=== PATIENT | female | born 1950 | race Caucasian/White ===

== ENCOUNTER 2019-11-30 11:49 | Outpatient (CLI) | payer MEDICARE, SELFPAY ==
--- NOTE | 2019-11-30 11:57 | MM_ITS ---
WS: [id number] BILATERAL DIGITAL SCREENING MAMMOGRAPHY WITH CAD CLINICAL INFORMATION: SCREENING HISTORY: Screening mammogram. No current complaints. COMPARISON: TECHNIQUE: Bilateral CC and MLO views. FINDINGS: The breasts are composed of heterogeneous fibroglandular density tissue, which can limit the detectio n of small underlying mass lesions. Dystrophic calcification left breast. No suspicious mass, asymmet ry, calcifications, or architectural distortion. No evidence of malignancy. MM/[place] [id number] IMPRESSION: BI-RADS: 2-Benign FOLLOW UP: 1 Year Follow-up Recommend return to annual screening mammography.
== END 2019-11-30 11:50 | disposition home or self-care (01) ==
LOC: RADSHAW 11:55
PROVIDERS: Family Provider Family Medicine; PCP Nurse Practitioner Family; Visit Provider Nurse Practitioner Family
DX: Z12.31 Encounter for screening mammogram for malignant neoplasm of breast (principal)
CPT/HCPCS: 77067

== ENCOUNTER 2020-01-24 15:27 | Outpatient (CLI) | payer MEDICARE, SELFPAY ==
--- NOTE | 2020-01-24 15:40 | XR_ITS ---
WS: [id number] XR KUB [id number] REASON FOR EXAM: GENERALIZED ABDOMINAL PAIN FINDINGS: There appeared to be a localized ileus in the left upper abdomen. The remaining the abdomen was normal with gas and fecal stasis seen. There was no definite stones seen. XR/XR KUB [id number] IMPRESSION: Localized ileus in the left upper abdomen.
== END 2020-01-24 15:28 | disposition home or self-care (01) ==
LOC: RADWPI 15:31
PROVIDERS: Family Provider Family Medicine; PCP Nurse Practitioner Family; Visit Provider Nurse Practitioner Family
DX: K56.7 Ileus, unspecified (principal); R10.84 Generalized abdominal pain
CPT/HCPCS: 74018

== ENCOUNTER 2020-02-11 07:53 | Outpatient (CLI) | payer MEDICARE, SELFPAY ==
--- NOTE | 2020-02-11 | CT_ITS ---
WS: [id number] CT ABDOMEN PELVIS TECHNIQUE: Contrast-enhanced CT of the abdomen and pelvis with coronal and sagittal reformatted image s. CLINICAL INFORMATION: ILEUS COMPARISON: None. DLP: 1097.[address] scans at [facility] use at least one of these dose optimization techniques: automat ed exposure control; mA and/or kV adjustment per patient size (includes targeted exams where dose is matched to clinical indication); or iterative reconstruction. FINDINGS: Mild intrahepatic biliary ductal dilatation. Portal vein and splenic vein are patent. Prior cholecyst ectomy. Pancreas is normal in appearance. Splenic granulomas. Lung bases are well aerated. Normal ramana al parenchymal enhancement. No hydronephrosis. Normal caliber abdominal aorta. Mild aortic calcification. Normal sigmoid colon. Tiny midline fat-con taining epigastric hernia. Incidental fat-containing umbilical hernia. No periaortic or retroperitone al lymphadenopathy. No inguinal lymphadenopathy. Urine distended bladder. Grade 1 anterolisthesis L4 on L5. Prior hysterectomy. CT/CT abdomen pelvis w con* [id number] IMPRESSION: 1. Prior cholecystectomy with mild intrahepatic biliary ductal dilatation. 2. Normal renal parenchymal enhancement. No hydronephrosis. 3. No evidence of small or large bowel obstruction. No free fluid in the pelvi s. 4. Urine distended bladder. 5. Grade 1 anterolisthesis L4 on L5. 6. Tiny epigastric fat-containing hernia and tiny fat-containing umbilical her tom.
[2020-02-11] MEDS: iohexol 300 mg/mL 100 mL Btl IV (10:02)
[2020-02-11] MEDS: iohexol 300 mg/mL 50 mL Btl PO (11:19)
== END 2020-02-11 07:54 | disposition home or self-care (01) ==
LOC: RADWPI 07:59
PROVIDERS: Family Provider Family Medicine; PCP Nurse Practitioner Family; Visit Provider Nurse Practitioner Family
DX: K56.7 Ileus, unspecified (principal); N32.89 Other specified disorders of bladder; K42.9 Umbilical hernia without obstruction or gangrene
CPT/HCPCS: 74177; Q9967

== ENCOUNTER 2020-11-08 07:37 | Outpatient (CLI) | payer MEDICARE, SELFPAY ==
--- NOTE | 2020-11-08 07:45 | USCV_ITS ---
Shaheed Power Age: 70 Gender: F : 1950 Exam Date: 11/08/2020 08:01 Ordering Phys: Kenia Austin NP Technologist: Una Saxena Exam Location: [facility] [place] Indication: ABNORMAL EKG BP: 142 / 80 HR: 67 Rhythm: Sinus Technical Quality: Adequate MEASUREMENTS (Male / Female) Normal Values 2D ECHO LV Diastolic Diameter PLAX 3.5 cm 4.2 - 5.9 / 3.9 - 5.3 cm LV Systolic Diameter PLAX 2.4 cm LV Chamber Size 3.0 cm IVS Diastolic Thickness 1.5 cm 0.6 - 1.0 / 0.6 - 0.9 cm IVS Systolic Thickness 1.6 cm LVPW Diastolic Thickness 1.4 cm 0.6 - 1.0 / 0.6 - 0.9 cm LVPW Systolic Thickness 1.7 cm RV Chamber Size 2.8 cm LVOT Diameter 2.0 cm LV Ejection Fraction 2D Teich 60.3 % LV Ejection Fraction MOD 2C 54.4 % LV Ejection Fraction 2C AL 58.7 % LA Diameter 3.6 cm LA Width 2.7 cm LA Height 4.1 cm RA Width 2.1 cm RA Height 3.4 cm Aorta at Sinotubular Diameter 2.5 cm M-MODE LV Diastolic Diameter MM 4.2 cm 4.2 - 5.9 / 3.9 - 5.3 cm LV Systolic Diameter MM 2.1 cm LV Ejection Fraction MM Teich 81.8 % IVS Diastolic Thickness MM 0.9 cm 0.6 - 1.0 / 0.6 - 0.9 cm IVS Systolic Thickness MM 1.3 cm LVPW Diastolic Thickness MM 0.9 cm 0.6 - 1.0 / 0.6 - 0.9 cm LVPW Systolic Thickness MM 1.4 cm Aortic Annulus Diameter 2.9 cm LA Ao Ratio MM 1.3 MV E Point Septal Separation 0.5 cm DOPPLER AV Peak Velocity 135.0 cm/s LVOT Peak Velocity 100.0 cm/s AV Area Cont Eq vti 2.2 cm squared AV Area Cont Eq pk 2.4 cm squared MV Area PHT 3.3 cm squared Mitral E to A Ratio 0.8 MV E' Velocity 38.5 cm/s Mitral E to MV E' Ratio 8.8 Mitral E to LV E' Lateral Ratio 10.7 Mitral E to LV E' Septal Ratio 7.6 TR Peak Velocity 218.5 cm/s TR Peak Gradient 19.1 mmHg TV Peak E Velocity 56.0 cm/s Right Atrial Pressure 3.0 mmHg Pulmonary Artery Systolic Pressu 22.1 mmHg PV Peak Velocity 62.0 cm/s RV Acceleration Time 0.1 s RV Ejection Time 0.4 s RV AcT/ET 0.4 FINDINGS Left Ventricle Normal left ventricular cavity size and mildly increased left ventricle wall thickness. Mild concentric left ventricular hypertrophy. Normal left ventricular systolic function. Left ventricular ejection fraction is estimated at 65 %. No regional wall motion abnormalities. Grade I diastolic dysfunction (abnormal relaxation filling pattern), normal to mildly elevated filling pressures. Right Ventricle Normal right ventricular size and systolic function. Right ventricular systolic pressure 22.1 mmHg. Right Atrium Normal right atrial size. Left Atrium Mildly increased left atrial size. Mitral Valve Thickened mitral valve. Trace mitral valve regurgitation. Aortic Valve Thickened probably tricuspid sclerotic aortic valve. No aortic valve stenosis. No aortic valve regurgitation. Tricuspid Valve Structurally normal tricuspid valve. No tricuspid valve stenosis. Mild tricuspid valve regurgitation. Pulmonic Valve Pulmonic valve not well visualized. Trace pulmonary valve regurgitation. Pericardium No pericardial effusion. Normal-sized inferior vena cava. Aorta Normal-sized aortic root CONCLUSIONS 1. Normal left ventricular cavity size and mildly increased left ventricle wall thickness. Mild concentric leftventricular hypertrophy. Normal left ventricular systolic function. Left ventricular ejection fraction is estimated at 65 %. No regional wall motion abnormalities. Grade I diastolic dysfunction (abnormal relaxation filling pattern), normal to mildly elevated filling pressures. 2. Normal right ventricular size and systolic function. 3. No significant valvular abnormality. 4. Normal pulmonary artery pressure. 5. When compared to previous echocardiogram dated 02/28/2014, there has been no significant change. Meche Robin MD (Electronically Signed) Final Date: 17 November 2020 17:39 S
== END 2020-11-08 07:38 | disposition home or self-care (01) ==
PROVIDERS: PCP Nurse Practitioner Family; Visit Provider Nurse Practitioner Family
DX: R94.31 Abnormal electrocardiogram [ECG] [EKG] (principal)
CPT/HCPCS: 93306

== ENCOUNTER 2020-11-28 08:09 | Outpatient (CLI) | payer MEDICARE, SELFPAY ==
[2020-11-28 08:17] VITALS: BMI 25.8
--- NOTE | 2020-11-28 08:23 | ECG_ITS ---
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 Interpretive Statements NAME OF STUDY: EXERCISE SESTAMIBI STRESS TEST INDICATION: Chest Pain Baseline blood pressure of 203/79 mm Hg, heart rate 68 beats per minute and oxygen saturation 95%. EKG showed normal sinus rhythm, normal axis with nonspecific ST depression. The patient exercised for 8 minutes on a standard Dilip protocol. Patient attained a maximum heart rate of 139 beats per minute(93% of the maximum predicted heart rate) with a blood pressure at the peak exercise of 224/90 mm Hg and oxygen saturation 97%. The EKG at the peak exercise revealed sinus tachycardia with 1 and 1/2 to 2 mm horizontal to upsloping ST depression in inferolateral leads. Patient did not have any chest pain or any significant arrhythmis with the exercise During the recovery phase, there were no new changes. Blood pressure at the end of the recovery phase was 128/85 mm Hg with a heart rate of 82 beats per minute oxygen saturation 98%. CONCLUSION: 1. Positive EKG response to treadmill exercise. 2. No exercise-induced chest pain or cardiac arrhythmia 3. Good exercise tolerance, attained a maximum of 10.2 METs. Maximum VO2 of 35.7 mL/kg/min. 4. Baseline hypertension with hypertensive response to exercise. 5. Perfusion scan will be documented separately. Electronically Signed On 11-29-2020 13:00:08 BALLPOINT PENS ASSEMBLER by Meche Robin M.D. [id number]
--- NOTE | 2020-11-28 08:23 | NMCV_ITS ---
NM ramy perf SPECT r/s* [id number] Shaheed Power Age: 70 Gender: F : 1950 Exam Date: 11/28/2020 09:14 Ordering Phys: Meche Robin MD ([email or web address]) Technologist: SMITHA Griffin Exam Location: [facility] Indications: Chest pain STRESS TEST Please see separate stress test report in [facility] for full findings IMAGE PROTOCOL Rest/Stress 1 Exercise Day Radiopharmaceutical Dose (mCi) Administration Site Administered by Rest: Tc-99m 10.9 IV SMITHA Griffin Sestamibi Stress:Tc-99m 32.2 IV SMITHA Griffin Sestam[place]ayton Rest: 28-Nov-2020 60 Discovery 630 Stress: 28-Nov-2020 60 Discovery 630 Radiopharmaceutical was injected at 85 % maximum heart rate. Images obtained in supine and prone position. SPECT RESULTS Technical Quality: Good Raw Data Analysis: Breast attenuation Image Corrections: No attenuation or motion correction applied Summed Stress Score: 1 Summed Rest Score: 7 Summed Difference Score: 0 PERFUSION FINDINGS Small size perfusion abnormality of mild severity of mid inferolateral, apical lateral apical inferior and apical patel on rest images with improved tracer uptake on stress images. This is suggestive of attenuation artifact. FUNCTIONAL RESULTS (calculated via Gated SPECT) Stress Image LV EF (%): 86 Stress EDV (mL):42 TID: 0.87 Stress ESV (mL):6 FUNCTIONAL FINDINGS: The left ventricle is normal in size. Transient Ischemia Dilatation of 0.87. There is normal left ventricular systolic function. The left ventricular ejection fraction is hyperdynamic with a value of 86%. There is hyperdynamic left ventricular wall thickening. IMPRESSIONS 1. Myocardial perfusion imaging is normal. Attenuation artifact noted in mid inferolateral and apical patel. 2. The left ventricular ejection fraction is hyperdynamic with a value of 86%. 3. There is hyperdynamic left ventricular wall thickening with no regional wall motion normality. 4. Scan indicates low risk for cardiac events. Meche Robin MD (Electronically Signed) Final Date: 30 November 2020 12:37 S
--- NOTE | 2020-11-28 09:45 | SUR.PREOP ---
Patient reports no pain or discomfort prior to the start of the procedure.
[2020-11-28 10:07] VITALS: BP 128/85; PULSE 68
== END 2020-11-28 08:10 | disposition home or self-care (01) ==
LOC: RAD 08:13 → CDL 08:16
PROVIDERS: PCP Nurse Practitioner Family; Visit Provider Internal Medicine Cardiovascular Disease
DX: R07.9 Chest pain, unspecified (principal); I10 Essential (primary) hypertension
CPT/HCPCS: 78452; 93017; A9500

== ENCOUNTER 2021-02-14 10:31 | Outpatient (CLI) | payer MEDICARE, SELFPAY ==
--- NOTE | 2021-02-14 10:35 | MM_ITS ---
WS: [id number] BILATERAL SCREENING DIGITAL MAMMOGRAM WITH CAD HISTORY: SCREENING COMPARISON: 11/30/2019, 10/21/2018 and 06/05/2017 Bilateral CC and MLO views submitted. Computer aided detection analyzed. Breast composition: The breasts are heterogeneously dense, which may obscure small masses. No suspici ous masses, microcalcifications or architectural distortion. Calcifications and asymmetries are stabl [place]. MM/[place] [id number] IMPRESSION: BI-RADS: 2-Benign FOLLOW UP: 1 Year Follow-up
== END 2021-02-14 10:32 | disposition home or self-care (01) ==
LOC: RADSHAW 10:34
PROVIDERS: PCP Nurse Practitioner Family; Visit Provider Nurse Practitioner Family
DX: Z12.31 Encounter for screening mammogram for malignant neoplasm of breast (principal)
CPT/HCPCS: 77067

== ENCOUNTER 2021-05-01 13:18 | Outpatient (CLI) | payer MEDICARE, SELFPAY ==
--- NOTE | 2021-05-01 13:22 | XR_ITS ---
WS: [id number] PROCEDURE: XR chest 2V* [id number] CLINICAL INFORMATION: COUGH COMPARISON: December 13, 2015 FINDINGS: Heart: Normal cardiac silhouette. Lungs: Lungs are clear. No consolidation or pleural fluid. Moderate chronic emphysematous changes. Bones: Postoperative changes lower cervical spine. XR/XR chest 2V* [id number] IMPRESSION: 1. Moderate chronic emphysematous changes. No acute pulmonary infiltrates. 2. Postoperative changes lower cervical spine.
== END 2021-05-01 13:19 | disposition home or self-care (01) ==
PROVIDERS: PCP Nurse Practitioner Family; Visit Provider Nurse Practitioner Family
DX: R05 Cough (principal)
CPT/HCPCS: 71046

== ENCOUNTER 2022-04-03 11:47 | Outpatient (CLI) | payer MEDICARE, SELFPAY ==
--- NOTE | 2022-04-03 12:12 | XR_ITS ---
WS: [id number] DEXA (DUAL ENERGY X-RAY ABSORPTIOMETRY) Bone mineral density was performed using a [employer] machine. HISTORY: AGE RELATED OSTEOPOROSIS COMPARISON: 09/25/2017 Lumbar spine BMD (L1-L4): 0.900 g/cm2 T score: -2.3 Z score: -0.3 Total hip BMD: Left: 0.824 g/cm2. T score: -1.5 Z score: 0.5 Right: 0.740 g/cm2. T score: -2.1 Z score: -0.2 10 year probability of a major osteoporotic fracture is 26.2%. Compared to the prior study from 09/25/2017. Lumbar spine bone mineral density has decreased by 2.6%. Bilateral hips bone mineral density has decreased by 9.2%. XR/XR DEXA axial skeleton* [id number] IMPRESSION: OSTEOPENIA based upon the WHO classification for females. Significant decrease in bone mineral density within the lumbar spine and hips since the prior study.
== END 2022-04-03 11:48 | disposition home or self-care (01) ==
PROVIDERS: PCP Nurse Practitioner Family; Visit Provider Nurse Practitioner Family
DX: M81.0 Age-related osteoporosis without current pathological fracture (principal)
CPT/HCPCS: 77080

== ENCOUNTER 2022-04-03 11:47 | Outpatient (CLI) | payer MEDICARE, SELFPAY ==
--- NOTE | 2022-04-03 13:02 | MM_ITS ---
WS: [id number] VIEWS: MLO and CC views both breasts. 3D digital tomosynthesis is also included in this exam. Comparison made with prior exam of 11/23/2014, 05/17/2016, 06/05/2017, 10/21/2018, 11/30/2019, and 1.. Findings: There was no sign of mass, architectural distortion or suspicious calcification in either breast. He terogeneously dense MM/[place] [id number] Impression: BI-RADS: 2-Benign FOLLOW-UP: 1 Year Follow-up This mammogram was also analyzed by the Computer Aided Detection System R2 Imag e Steam Pressure Chamber Operator.
== END 2022-04-03 11:48 | disposition home or self-care (01) ==
PROVIDERS: PCP Nurse Practitioner Family; Visit Provider Nurse Practitioner Family
DX: Z12.31 Encounter for screening mammogram for malignant neoplasm of breast (principal)
CPT/HCPCS: 77063; 77067

== ENCOUNTER → 2022-07-02 13:24 | Outpatient (BNVA) | payer MEDICARE, SELFPAY | PROVIDERS: PCP Family Medicine; Visit Provider Internal Medicine Cardiovascular Disease | DX: R07.9 Chest pain, unspecified (principal); I10 Essential (primary) hypertension; E78.2 Mixed hyperlipidemia; K21.9 Gastro-esophageal reflux disease without esophagitis | CPT/HCPCS: 99214 ==

== ENCOUNTER 2023-04-10 09:16 | Outpatient (CLI) | payer MEDICARE, SELFPAY ==
--- NOTE | 2023-04-10 09:27 | MM_ITS ---
WS: [id number] BILATERAL SCREENING DIGITAL TOMOSYNTHESIS MAMMOGRAM WITH CAD HISTORY: SCREENING COMPARISON: 04/03/2022, 02/14/2021 and 11/30/2019 Bilateral CC and MLO views with tomosynthesis and synthetic mammography submitted. Computer aided det ection analyzed. Breast composition: The breasts are heterogeneously dense, which may obscure small masses. No suspici ous masses, microcalcifications or architectural distortion. Scattered bilateral asymmetries and coar se calcification in the posterior LEFT breast. Stable. MM/[place] [id number] IMPRESSION: BI-RADS: 2-Benign FOLLOW UP: 1 Year Follow-up
== END 2023-04-10 09:17 | disposition home or self-care (01) ==
PROVIDERS: PCP Family Medicine; Visit Provider Family Medicine
DX: Z12.31 Encounter for screening mammogram for malignant neoplasm of breast (principal)
CPT/HCPCS: 77063; 77067

== ENCOUNTER → 2023-07-01 13:23 | Outpatient (BNVA) | payer MEDICARE, SELFPAY | PROVIDERS: PCP Family Medicine; Visit Provider Internal Medicine Cardiovascular Disease | DX: R07.9 Chest pain, unspecified (principal); I10 Essential (primary) hypertension | CPT/HCPCS: 99214 ==

== ENCOUNTER 2023-10-27 12:00 | Outpatient (CLI) | payer MEDICARE, SELFPAY ==
--- NOTE | 2023-10-27 12:07 | XR_ITS ---
WS: [id number] DEXA (DUAL ENERGY X-RAY ABSORPTIOMETRY) Bone mineral density was performed using a [employer] machine. HISTORY: POSTMENOPAUSAL COMPARISON: 04/03/2022 Lumbar spine BMD (L1-L4): 0.861 g/cm2 T score: -2.7 Z score: -0.5 Total hip BMD: Left: 0.811 g/cm2. T score: -1.6 Z score: 0.5 Right: 0.754 g/cm2. T score: -2.0 Z score: 0.0 10 year probability of a major osteoporotic fracture is 24.8%. Compared to the prior study from 04/03/2022. Lumbar spine bone mineral density has decreased by 4.3%. Bilateral hips bone mineral density is unchanged. IMPRESSION: OSTEOPOROSIS based upon the WHO classification for females. Significant decrease in bone mineral density within the lumbar spine since the prior study.
== END 2023-10-27 12:01 | disposition home or self-care (01) ==
LOC: RAD 12:01
PROVIDERS: PCP Family Medicine; Visit Provider Family Medicine
DX: Z78.0 Asymptomatic menopausal state (principal)
CPT/HCPCS: 77080

== ENCOUNTER 2023-12-10 13:37 | Outpatient (CLI) | payer MEDICARE, SELFPAY ==
--- NOTE | 2023-12-10 13:40 | USCV_ITS ---
Shaheed Power Age: 73 Gender: F : 1950 Exam Date: 12/10/2023 14:15 Ordering Phys: David Bowie MD Technologist: CT Exam Location: [facility] [place] Indication: murmur BP: 130 / 70 HR: 70 Rhythm: Sinus Technical Quality: Adequate MEASUREMENTS (Male / Female) Normal Values 2D ECHO LV Chamber Size 3.8 cm RV Chamber Size 3.0 cm LVOT Diameter 2.0 cm LV Ejection Fraction MOD 2C 67.9 % LV Ejection Fraction 2C AL 66.3 % LA Diameter 3.8 cm LA Width 3.1 cm LA Height 4.7 cm RA Width 3.2 cm RA Height 4.4 cm Aorta at Sinotubular Diameter 2.3 cm IVC Diameter 1.2 cm M-MODE Aortic Annulus Diameter 3.4 cm LA Ao Ratio MM 1.3 MV E Point Septal Separation 0.3 cm DOPPLER AV Peak Velocity 154.0 cm/s LVOT Peak Velocity 117.0 cm/s AV Area Cont Eq vti 3.0 cm squared AV Area Cont Eq pk 2.4 cm squared MV E' Velocity 8.0 cm/s TR Peak Velocity 217.3 cm/s TR Peak Gradient 18.9 mmHg TV Peak E Velocity 65.0 cm/s Right Atrial Pressure 3.0 mmHg Pulmonary Artery Systolic Pressu 21.9 mmHg PV Peak Velocity 108.0 cm/s FINDINGS Left Ventricle Left ventricle is normal size. LV systolic function is normal with EF of 60 to 65%. No regional wall motion abnormalities are seen. Grade 1 diastolic dysfunction. Right Ventricle Normal in size and function Right Atrium Normal in size Left Atrium Normal in size Mitral Valve Structurally normal mitral valve. Mild mitral regurgitation. Aortic Valve Aortic valve is thickened. No significant stenosis. Mild aortic regurgitation. Tricuspid Valve Mild tricuspid regurgitation. Pulmonary artery systolic pressure is normal. Pulmonic Valve Mild pulmonic regurgitation Pericardium Normal Aorta Normal in size IVC Appears to be normal CONCLUSIONS LV systolic function is normal with EF of 60 to 65%. Grade 1 diastolic dysfunction. Mild mitral regurgitation Mild aortic regurgitation Mild tricuspid regurgitation Mild pulmonic regurgitation Compared to prior echocardiogram from 2019, patient now has mild aortic regurgitation. Bello Carl MD (Electronically Signed) Final Date: 21 December 2023 19:05 S
== END 2023-12-10 13:38 | disposition home or self-care (01) ==
LOC: RAD 13:38
PROVIDERS: PCP Family Medicine; Visit Provider Family Medicine
DX: R01.1 Cardiac murmur, unspecified (principal); I35.1 Nonrheumatic aortic (valve) insufficiency
CPT/HCPCS: 93306

== ENCOUNTER → 2024-01-14 10:44 | Outpatient (BNVA) | payer MEDICARE, SELFPAY | PROVIDERS: PCP Family Medicine; Visit Provider Internal Medicine Cardiovascular Disease | DX: R07.9 Chest pain, unspecified (principal); I35.1 Nonrheumatic aortic (valve) insufficiency; E78.2 Mixed hyperlipidemia; I10 Essential (primary) hypertension; R94.31 Abnormal electrocardiogram [ECG] [EKG] | CPT/HCPCS: 93005; 99214 ==

== ENCOUNTER 2024-04-01 09:33 | Outpatient (CLI) | payer MEDICARE, SELFPAY ==
--- NOTE | 2024-04-01 09:39 | USCV_ITS ---
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 Dr Georgie العراقي MD [facility] (Electronically Signed) Final Date: 02 Apr 2024 08:24 S
== END 2024-04-01 09:34 | disposition home or self-care (01) ==
LOC: RAD 09:33
PROVIDERS: PCP Family Medicine; Visit Provider Family Medicine
DX: I73.9 Peripheral vascular disease, unspecified (principal)
CPT/HCPCS: 93922

== ENCOUNTER 2024-08-20 09:13 | Outpatient (CLI) | payer MEDICARE, SELFPAY ==
--- NOTE | 2024-08-20 09:16 | MM_ITS ---
WS: [id number] BILATERAL 3D TOMOSYNTHESIS DIGITAL SCREENING MAMMOGRAPHY WITH CAD CLINICAL INFORMATION: SCREENING HISTORY: Screening mammogram. No current complaints. COMPARISON: 2022 TECHNIQUE: Bilateral CC and MLO views. FINDINGS: The breasts are composed of heterogeneous fibroglandular density tissue, which can limit the detectio n of small underlying mass lesions. No suspicious mass, asymmetry, calcifications, or architectural d istortion. No evidence of malignancy. Coarse calcification LEFT breast. Vascular calcifications. [place] nt centered calcifications. MM/MM [facility] tomosynthesis [id number] IMPRESSION: DENSITY: The breasts are heterogeneously dense, which may obscure small masses. BI-RADS: 2 - Benign FOLLOW UP: 1 Year Follow-up Recommend return to annual screening mammography.
== END 2024-08-20 09:14 | disposition home or self-care (01) ==
LOC: RAD 09:14
PROVIDERS: PCP Family Medicine; Visit Provider Family Medicine
DX: Z12.31 Encounter for screening mammogram for malignant neoplasm of breast (principal); R92.333 Mammographic heterogeneous density, bilateral breasts; R92.1 Mammographic calcification found on diagnostic imaging of breast
CPT/HCPCS: 77063; 77067

== ENCOUNTER → 2024-08-31 08:15 | Outpatient (BNVA) | payer MEDICARE, SELFPAY | PROVIDERS: PCP Family Medicine; Visit Provider Podiatrist Foot & Ankle Surgery | DX: M79.672 Pain in left foot (principal); Q82.8 Other specified congenital malformations of skin | CPT/HCPCS: 17110; 73630; 99203 ==

== ENCOUNTER → 2024-11-24 10:31 | Outpatient (BNVA) | payer MEDICARE, SELFPAY | PROVIDERS: PCP Family Medicine; Visit Provider Nurse Practitioner Family | DX: R07.89 Other chest pain (principal); I35.1 Nonrheumatic aortic (valve) insufficiency; E78.2 Mixed hyperlipidemia; I10 Essential (primary) hypertension | CPT/HCPCS: 99214 ==

== ENCOUNTER 2024-12-03 11:20 | Outpatient (CLI) | payer MEDICARE, SELFPAY ==
[2024-12-03 11:54] VITALS: BMI 23.0
--- NOTE | 2024-12-03 11:55 | ECG_ITS ---
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 Baseline heart rate was 70 beats per minute. Baseline blood pressure was 124/68 millimeters of mercury. Target heart rate was 144 beats per minute. Maximum heart rate achieved was 144, which was 100% of the target heart rate. Maximum blood pressure was 151/91 millimeters of mercury. Total exercise time was 9 minutes 25 seconds. Maximum METs achieved was 13.5, maximum VO2 was 47.3. The reason for ending the test was maximum effort achieved. The patient complained of shortness of breath during the stress test, which then resolved at the end of the test. ELECTROCARDIOGRAM: BASELINE: Showed sinus rhythm, normal axis, inferolateral mild ST-T changes at the baseline noted. EXERCISE: At the peak exercise level, no significant ST-T changes suggestive of ischemia noted. RECOVERY: During the recovery period, heart rate dropped appropriately. No significant ST-T changes in the recovery suggestive of ischemia noted. CONCLUSION: 1. Exercise capacity good. 2. Heart rate response was appropriate. 3. Blood pressure response was appropriate. 4. Symptoms not suggestive of ischemia. 5. Electrocardiogram portion of the stress test was not suggestive of ischemia. Electronically Signed On 12-18-2024 21:06:20 COLLEGE BASKETBALL COACH by JAS BURRLEL [email or web address]
[2024-12-03 13:09] VITALS: BP 136/74; PULSE 83
== END 2024-12-03 11:21 | disposition home or self-care (01) ==
LOC: CDL 11:24
PROVIDERS: PCP Family Medicine; Visit Provider Nurse Practitioner Family
DX: R07.9 Chest pain, unspecified (principal)
CPT/HCPCS: 93017

== ENCOUNTER → 2025-02-02 13:31 | Outpatient (BNVA) | payer MEDICARE, SELFPAY | PROVIDERS: PCP Family Medicine; Visit Provider Internal Medicine Cardiovascular Disease | DX: R07.89 Other chest pain (principal); I10 Essential (primary) hypertension; E78.2 Mixed hyperlipidemia; J44.9 Chronic obstructive pulmonary disease, unspecified; R01.1 Cardiac murmur, unspecified | CPT/HCPCS: 99214 ==

== ENCOUNTER 2025-03-10 06:28 | Outpatient (CLI) | payer MEDICARE, SELFPAY ==
--- NOTE | 2025-03-10 07:00 | USCV_ITS ---
Shaheed Power Age: 75 Gender: F : 1950 Exam Date: 03/10/2025 07:10 Ordering Phys: Georgie العراقي MD ([email or web address]) Technologist: Exam Location: [facility] – [place] Indication: murmur BP: 123 / 75 HR: 61 Rhythm: Sinus Technical Quality: MEASUREMENTS (Male / Female) Normal Values 2D ECHO LV Diastolic Diameter PLAX 4.2 cm 4.2 - 5.9 / 3.9 - 5.3 cm IVS Diastolic Thickness 0.9 cm 0.6 - 1.0 / 0.6 - 0.9 cm IVS Systolic Thickness 1.5 cm LVPW Diastolic Thickness 0.9 cm 0.6 - 1.0 / 0.6 - 0.9 cm LVPW Systolic Thickness 1.3 cm LV Ejection Fraction 2D Teich 70.3 % LV Ejection Fraction MOD 4C 76.2 % LV Ejection Fraction MOD 2C 64.8 % LV Ejection Fraction 2C AL 66.4 % LA Diameter 1.8 cm RA Systolic Volume 4C AL 33.4 ml RA Systolic Volume 4C MOD 30.3 ml LA Sys Volume AL 35.0 cm cubed LA Sys Volume Index AL 23.8 cm cubed/m squared IVC Diameter 1.9 cm M-MODE LA Ao Ratio MM 1.3 AV Cusp Separation MM 2.2 cm DOPPLER AV Peak Velocity 133.0 cm/s LVOT Peak Velocity 99.0 cm/s MV Peak Velocity 129.0 cm/s MV Area PHT 3.9 cm squared Mitral E to A Ratio 0.9 TV Peak Velocity 179.0 cm/s TR Peak Velocity 233.0 cm/s TR Peak Gradient 21.7 mmHg PV Peak Velocity 69.0 cm/s FINDINGS Left Ventricle Normal left ventricular size and systolic function, EF 76%.no regional wall motion abnormalities. Mild left ventricular hypertrophy. Grade I/IV diastolic dysfunction (abnormal relaxation filling pattern), normal to mildly elevated filling pressures. Right Ventricle Normal right ventricular size and systolic function. Right Atrium The right atrium is normal in size. Left Atrium Mildly increased left atrial size. Mitral Valve Mild mitral valve regurgitation. Trace mitral valve regurgitation. Aortic Valve Thickened aortic valve. Trace to mild aortic valve regurgitation. Tricuspid Valve Mild tricuspid valve regurgitation. Pulmonic Valve Mild pulmonary valve regurgitation. Pericardium No pericardial effusion. Aorta Normal aortic annulus size. IVC Normal inferior vena cava. CONCLUSIONS Normal left ventricular size and systolic function, EF 76%.no regional wall motion abnormalities. Mild left ventricular hypertrophy. Grade I/IV diastolic dysfunction (abnormal relaxation filling pattern), normal to mildly elevated filling pressures. Mild mitral valve regurgitation. Trace mitral valve regurgitation. Mildly increased left atrial size. Thickened aortic valve. Trace to mild aortic valve regurgitation. Mild tricuspid valve regurgitation. Estimated pulmonary artery peak systolic pressure 25 mmHg Mild pulmonary valve regurgitation. There is no pericardial effusion. There are no intracardiac masses. Compared to the study from 12/10/2023, there may not be a significant change Dr Georgie العراقي MD [facility] (Electronically Signed) Final Date: 10 Mar 2025 13:41 S
== END 2025-03-10 06:29 | disposition home or self-care (01) ==
PROVIDERS: PCP Family Medicine; Visit Provider Internal Medicine Cardiovascular Disease
DX: I10 Essential (primary) hypertension (principal); R07.89 Other chest pain; R93.1 Abnormal findings on diagnostic imaging of heart and coronary circulation; I35.8 Other nonrheumatic aortic valve disorders; I35.1 Nonrheumatic aortic (valve) insufficiency; I07.1 Rheumatic tricuspid insufficiency; I37.1 Nonrheumatic pulmonary valve insufficiency
CPT/HCPCS: 93306

== ENCOUNTER → 2025-08-10 12:54 | Outpatient (BNVA) | payer MEDICARE, SELFPAY | PROVIDERS: PCP Family Medicine; Visit Provider Nurse Practitioner Family | DX: I10 Essential (primary) hypertension (principal); E78.5 Hyperlipidemia, unspecified; M85.9 Disorder of bone density and structure, unspecified; R63.4 Abnormal weight loss | CPT/HCPCS: 99214 ==

== ENCOUNTER 2025-09-07 09:06 | Outpatient (CLI) | payer MEDICARE, SELFPAY ==
--- NOTE | 2025-09-07 09:13 | MM_ITS ---
WS: [id number] BILATERAL SCREENING DIGITAL TOMOSYNTHESIS MAMMOGRAM WITH CAD HISTORY: SCREENING COMPARISON: 08/20/2024, 04/10/2023, 04/03/2022 Bilateral CC and MLO views with tomosynthesis and synthetic mammography submitted. Computer aided detection analyzed. Breast composition: The breasts are extremely dense, which lowers the sensitivity of mammography. No suspicious masses, microcalcifications or architectural distortion. Numerous scattered asymmetries and densities of the breast. Benign calcifications. Vascular calcifications. MM/MM scr tomosynthesis [id number] IMPRESSION: BI-RADS: 2 - Benign FOLLOW UP: 1 Year Follow-up
== END 2025-09-07 09:07 | disposition home or self-care (01) ==
PROVIDERS: PCP Family Medicine; Visit Provider Nurse Practitioner Family
DX: Z12.31 Encounter for screening mammogram for malignant neoplasm of breast (principal); R92.313 Mammographic fatty tissue density, bilateral breasts; R92.1 Mammographic calcification found on diagnostic imaging of breast; N64.89 Other specified disorders of breast
CPT/HCPCS: 77063; 77067